=== PATIENT | female | born 2000 | race Caucasian/White ===

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

== ENCOUNTER 2021-03-10 13:59 | Emergency (ER) | payer OTHER | END 2021-03-10 15:32 | disposition short-term general hospital (02) | LOC: ERS 13:59 | DX: O60.03 Preterm labor without delivery, third trimester (principal); Z3A.38 38 weeks gestation of pregnancy ==